=== PATIENT | female | born 1945 | race Caucasian/White ===

== ENCOUNTER → 2017-05-30 | Outpatient (CLI) | payer MEDICARE, BC ==
[~2017-05-30] MED LIST: ASP81 PO; ATOR40TA24 PO; CALC-1046 PO; CARB15DR74 OP; CHOL200025 PO; CYCL1DRO6; DIURETIC; FIBE1TAB3 PO; GLUC500C29 PO; HORMONE REPLACEMENT; LISI-353 PO; LISI-362 PO; MULT-1335 PO; MULT-5 PO; OMEP-114 PO; PRAV40TA77 PO
--- NOTE | 2017-05-30 13:28 | RADIOLOGY IMAGING REPORT ---
FACILITY: [facility] PATIENT NAME: HALIMA DUCKWORTH : [id number] MR: [id number] V: [id number] EXAM DATE: ORDERING PHYSICIAN: ROSARIO SMITH TECHNOLOGIST: Keely Christianson PROCEDURE:BILATERAL DIGITAL SCREENING MAMMOGRAM WITH CAD ASSISTED INTERPRETATION & 3D TOMOSYNTHESIS COMPARISON:Prior mammograms 05/20/16, 05/18/15, 05/16/14, 04/14/13, 04/07/12, 04/16/11 INDICATIONS:SCREENING FINDINGS: A small amount of fibroglandular tissue is seen throughout the breasts. The parenchymal pattern has remained stable allowing for difference in mammographic technique & patient positioning. There is no evidence of malignant appearing mass, malignant appearing calcifications or other secondary sign of malignancy in either breast. DIAGNOSTIC CATEGORY 1--NEGATIVE. RECOMMENDATIONS: ROUTINE MAMMOGRAM AND CLINICAL EVALUATION. IMPRESSION: BIRADS 1: Negative No significant abnormality is seen Dictated by: Eleni Deras M.D. on 05/30/2017 at 9:11 Transcribed by: JERAMY on 05/30/2017 at 10:01 Approved by: Eleni Deras M.D. on 05/30/2017 at 13:27 [facility]
== END ==
LOC: MAMO 03:11
PROVIDERS: ATTEND Family Medicine
DX: Z12.31 Encounter for screening mammogram for malignant neoplasm of breast (principal)
CPT/HCPCS: 77063; 77067

== ENCOUNTER → 2017-09-03 | Outpatient (CLI) | payer MEDICARE, BC ==
--- NOTE | 2017-09-03 14:01 | RADIOLOGY IMAGING REPORT ---
FACILITY: [facility] [place] PATIENT NAME: Laura Caba : 1945 MR: [id number] V: [id number] EXAM DATE: ORDERING PHYSICIAN: GABRIELLE HERNANDEZ TECHNOLOGIST: Location: [facility] Patient: Laura Caba : 1945 Visit/Account:[id number] Date of Sevice: 09/03/2017 DEXA Scan Clinical history: Post menopausal screening, mid back pain. Comparison: DEXA scan from 04/18/2008. LUMBAR SPINE: The bone mineral density (BMD) measured from L1-L4 correlates with a Z-score of -1.5 and a T-score of -2.6 which is osteoporosis as defined by the World Health Organization. The corresponding risk of f racture in the lumbar spine is 68 times increased compared with a young adult reference population. This value has decrease by 10.5 % since the prior study. More than 5% change is considered significa nt. HIP: Bone mineral density (BMD) measured in the LEFT total hip region correlates with a Z-score 0.4 and a T-score of -0.7 which is normal as defined by the World Health Organization. The corresponding risk of fracture in the hip is 1-2 t imes increased compared to a young adult reference population. This value has decrease by 3.6 % since the prior study. More than 5% change is considered significant. T score left femoral neck -1.6 Bone mineral density (BMD) measured in the Femoral Neck region measures 0.815 g/cm?. IMPRESSION: 1. Lumbar spine: Osteoporosis. There has been 10.5% decrease in the bone mineral density since the previous exam. 2. Left Total Hip: Normal. There has been 3.6% decrease in the bone mineral density since the previ ous exam. 3. Femoral Neck: Bone Mineral Density is 0.815 g/cm? The next DEXA scan of this patient should include the following sites: L1-L4 and the left hip. FRAX? WHO Fracture Risk Assessment Tool link: <http://www.shef.ac.uk/FRAX/tool.jsp?locationValue=9> PLEASE NOTE: 1) The World Health Organization defines low BMD as follows: T-score Normal > -1 Osteopenia < -1 and > -2.5 Osteoporosis < -2.5 without fractures Established osteoporosis < -2.5 with fractures 2) In general, you may wish to consider: Diagnosis Treatment Follow-up DEXA Normal BMD Prevention 2-3 years Osteopenia Prevention/therapy 1-2 years Osteoporosis Therapy Yearly 3) Fracture risk estimated from the T-score is more accurate for vertebral fractures (often spontane ous) than for hip fractures. Report Dictated By: Eleni Deras MD at 09/03/2017 1:55 PM Report E-Signed By: Eleni Deras MD at 09/03/2017 1:57 PM WSN:[id number]
== END ==
LOC: RAD 01:37
PROVIDERS: ATTEND Physician Assistant
DX: Z13.820 Encounter for screening for osteoporosis (principal); M81.0 Age-related osteoporosis without current pathological fracture
CPT/HCPCS: 77080

== ENCOUNTER 2018-01-04 10:41 | Emergency (ER) | payer MEDICARE, BC ==
--- NOTE | 2018-01-04 10:43 | ER Report ---
History and Physical Time Seen By MD: 10:43 HPI/ROS CHIEF COMPLAINT: URI symptoms HISTORY OF PRESENT ILLNESS: Patient is a 72-year-old female who presents to the emergency department with complaint of upper respiratory symptoms. She states that symptoms may began evening worsened over the course of Friday during the day. She reports runny nose sore throat, generalized malaise. She denies any fevers or chills she states she felt somewhat better Friday with sore throat and improving. But states that both Friday night and Friday night she had extreme difficulty sleeping. She did wear her CPAP last evening slept for about 2 hours but then woke up. She has been using Mucinex and extra strength Tylenol to treat symptoms with good effect. Her primary complaint is that she's having difficulty sleeping at nighttime. She states that last night her nose was quite congested and she was having some coughing. REVIEW OF SYSTEMS: ENT: Nasal congestion, sinus pressure, sore throat Respiratory: Dry cough Cardiovascular: No chest pain, no palpitations. Gastrointestinal: No vomiting, no abdominal pain. Musculoskeletal: No back pain. Allergies: Coded Allergies: adhesive tape (Verified Allergy, Mild, 04/22/13) caffeine (Verified Allergy, Mild, 04/22/13) tetracycline (Verified Allergy, Mild, 04/22/13) Home Meds Active Scripts Oxymetazoline Hcl (12 HOUR NASAL SPRAY) 30 Ml [place], 30 ML NS BID for congestion , #3 BOTTLE 1 Refill discontinue after three days Prov:CINTIA MAYO MD 01/04/18 Acetaminophen/Chlorpheniramine (CORICIDIN HBP COLD & FLU TAB) 1 Each Tablet, 2 EACH PO Q6H for congestion, #30 TAB 0 Refills Prov:CINTIA MAYO MD 01/04/18 Reported Medications Cetirizine Hcl (ZYRTEC) 10 Mg Tablet, 10 MG PO QDAY, TAB 01/04/18 Multivitamin With Minerals (MULTIPLE VITAMIN) 1 Each Tablet, 1 EACH PO QDAY, TAB 06/26/16 Carboxymethylcellulos/Glycerin (REFRESH OPTIVE EYE DROPS) 15 Ml Drops, 2 GTT OP BID 06/26/16 Multivit-Min/FA/Lutein/Zeaxant (Macular Vitamin Tablet) 1 Each Tablet, 1 TAB PO QDAY 06/26/16 Cholecalciferol (Vitamin D3) (VITAMIN D3) 2,000 Unit Capsule, 2 CAP PO QDAY, CAPSULE 06/26/16 Lisinopril/Hydrochlorothiazide (LISINOPRIL-HCTZ 20-12.5 MG TAB) 1 Each Tablet, 1 EACH PO QDAY 06/26/16 Atorvastatin Calcium (LIPITOR) 40 Mg Tablet, 2 TAB PO QDAY, TAB 06/26/16 Omeprazole (PRILOSEC) 20 Mg Capsule.dr, 20 MG PO BID 04/22/13 Aspirin (Childrens Chewable Aspirin) 81 Mg Chew, 81 NG PO ONCE, 0 Refills 04/30/07 Past Medical/Surgical History Past medical history for hypertension, hypercholesterolemia, gastroesophageal reflux disease; CPAP at night Reviewed Nurses Notes: Yes Old Medical Records Reviewed: Yes Hx Smoking: No Hx Substance Use Disorder: No Hx Alcohol Use: No Constitutional Vital Sign - Last 24 Hours 01/04/18 10:46 Temp 98.4 Pulse 83 Resp 16 B/P (MAP) 152/88 Pulse Ox 93 O2 Delivery Room Air Physical Exam General Appearance: The patient is alert, has no immediate need for airway protection and no signs of toxicity. Eyes: Pupils equal and round no pallor or injection. Sclera anicteric; conju nctivae clear ENT, Mouth: Mucous membranes are moist. Nares with some inflammation no purulent discharge noted. Sinuses nontender to palpation Respiratory: There are no retractions, lungs are clear to auscultation. No wheezing with forced exhalation Cardiovascular: Regular rate and rhythm. Gastrointestinal: Abdomen is soft and non tender, no masses, bowel sounds normal. Neurological: Awake and alert Skin: Warm and dry, no rashes. Musculoskeletal: Neck is supple non tender. Extremities are nontender, nonswollen and have full range of motion. Medical Decision Making Data Points Laboratory Hematology Test 01/04/18 11:08 Influenza Virus Type A (PCR) Negative (NEGATIVE) Influenza Virus Type B (PCR) Negative (NEGATIVE) Chemistry Test 01/04/18 11:08 Influenza Virus Type A (PCR) Negative (NEGATIVE) Influenza Virus Type B (PCR) Negative (NEGATIVE) ED Course/Re-evaluation ED Course 01/04/2018 11:04:36 am plan at this time will be to perform influenza screening. Suspect patient with viral upper respiratory infection. Anticipate symptomatically treatment discharge home. Decision to Disposition Date: Jan 04, 2018 Decision to Disposition Time: 11:49 Depart Departure Latest Vital Signs Vital Signs Date Time Temp Pulse Resp B/P (MAP) Pulse Ox O2 Delivery O2 Flow Rate FiO2 01/04/18 10:46 98.4 83 16 152/88 93 Room Air Impression: Primary Impression: Upper respiratory infection Condition: Improved Disposition: HOME OR SELF-CARE Referrals: ROSARIO SMITH MD (PCP) New Scripts Oxymetazoline Hcl (12 HOUR NASAL SPRAY) 30 Ml [place] 30 ML NS BID for congestion, #3 BOTTLE 1 Refill discontinue after three days Prov: CINTIA MAYO MD 01/04/18 Acetaminophen/Chlorpheniramine (CORICIDIN HBP COLD & FLU TAB) 1 Each Tablet 2 EACH PO Q6H for congestion, #30 TAB 0 Refills Prov: CINTIA MAYO MD 01/04/18 Patient Instructions: Upper Respiratory Infection (ED) Problem Qualifiers Primary Impression: Upper respiratory infection URI type: unspecified URI Qualified Codes: J06.9 - Acute upper respiratory infection, unspecified CINTIA MAYO MD Jan 04, 2018 10:43
[2018-01-04] MEDS ORDERED: CETI-176 PO (10:57)
[2018-01-04 11:30] VITALS: BP 134/81
[2018-01-04] MEDS ORDERED: OXYM-22 NS (11:33)
[2018-01-04] MEDS ORDERED: [UNRECOGNIZED DRUG - CODE] PO (11:33)
== END 2018-01-04 12:01 | disposition home or self-care (01) ==
LOC: ER 10:57
DX: J06.9 Acute upper respiratory infection, unspecified (principal)
CPT/HCPCS: 87502; 99282

== ENCOUNTER → 2018-06-16 | Outpatient (CLI) | payer MEDICARE, BC ==
[~2018-06-16] MED LIST changes: +CETI-176 PO; +OXYM-22 NS; +[UNRECOGNIZED DRUG - CODE] PO
--- NOTE | 2018-06-16 16:30 | RADIOLOGY IMAGING REPORT ---
FAC[place] [facility] [place] PATIENT NAME: HALIMA DUCKWORTH : [id number] MR: [id number] V: [id number] EXAM DATE: [id number] ORDERING PHYSICIAN: ROSARIO SMITH TECHNOLOGIST: Keely Christianson PROCEDURE:BILATERAL DIGITAL SCREENING MAMMOGRAM WITH CAD ASSISTED INTERPRETATION & 3D TOMOSYNTHESIS COMPARISON:Prior mammogram 05/30/2017, 05/20/2016, 05/18/2015. INDICATIONS:screening FINDINGS: The breast tissue demonstrates scattered fibroglandular densities. There are some benign course microcalcifications in both breasts. No dominant mass or suspicious microcalcifications in either breast. TECHNIQUE: BILATERAL CC & MLO 3D TOMOGRAPHIC IMAGES WERE OBTAINED. CAD WAS USED. DIAGNOSTIC CATEGORY 2--BENIGN FINDING. RECOMMENDATIONS: ROUTINE MAMMOGRAM AND CLINICAL EVALUATION IN 1 YR. IMPRESSION: BIRADS 2: Benign finding. Dictated by: Julian Arauz M.D. on 06/16/2018 at 15:52 Transcribed by: JERAMY on 06/16/2018 at 16:20 Approved by: Julian Arauz M.D. on 06/16/2018 at 16:29 [facility]
== END ==
LOC: MAMO 00:42
PROVIDERS: ATTEND Family Medicine
DX: Z12.31 Encounter for screening mammogram for malignant neoplasm of breast (principal); R92.1 Mammographic calcification found on diagnostic imaging of breast
CPT/HCPCS: 77063; 77067